=== PATIENT | male | born 1995 | race Caucasian/White ===

== ENCOUNTER 2022-02-14 12:06 | Emergency (ER) | payer OTHER ==
[~2022-02-14] VITALS: Ht 185.4 cm; Wt 104.3 kg
[~2022-02-14 12:06] MED LIST: ALBU90OI INH; AMOX500 PO; AMOX50SU PO; CRUTCH3 USE; IBUP600 PO; OXYACE5T PO; RXCODACET PO; RXERYTOPTH OU; RXOXYACE PO
[2022-02-14] MEDS ORDERED: CYCL10 PO (16:44)
== END 2022-02-14 16:49 | disposition home or self-care (01) ==
LOC: ER 12:06
DX: M54.50 Low back pain, unspecified (principal); G89.29 Other chronic pain; M51.46 Schmorl's nodes, lumbar region
CPT/HCPCS: 72148; J1885